=== PATIENT | male | born 1970 | race Caucasian/White ===

== ENCOUNTER 2017-08-18 13:41 | Emergency (ER) | payer OTHER ==
--- NOTE | 2017-08-18 15:40 | ED Physician Documentation ---
PD HPI UPPER EXT INJURY - Stated complaint Stated Complaint: FINGER LAC - Chief complaint Chief Complaint: Laceration - History obtained from History obtained from: Patient - History of Present Illness Location: Left, Finger (thumb) Timing - onset: Today Timing - details: Abrupt onset, Still present (the wound is still bleeding if he releases direct pressure.) Improved by: Other (direct pressure) Worsened by: Moving Associated symptoms: No: Weakness, Numbness Contributing factors: No: Anticoagulated Similar symptoms before: Has not had sx before Recently seen: Not recently seen Review of Systems Skin: reports: Laceration (s). denies: Rash Neurologic: denies: Focal weakness, Numbness, Near syncope PD PAST MEDICAL HISTORY - Past Medical History Neuro: Headache/migraine - Past Surgical History Past Surgical History: Yes Ortho: Other HEENT: Other - Present Medications Home Medications: Ambulatory Orders Medication Instructions Recorded Confirmed Amoxicillin/Potassium Clav 1 each PO Q12H #14 tablet 04/20/16 [Augmentin 875-125 Tablet] - Allergies Allergies/Adverse Reactions: Allergies Allergy/AdvReac Type Severity Reaction Status Date / Time acetaminophen [From Vicodin] Allergy seizure Verified 04/20/16 17:41 hydrocodone bitartrate * Allergy seizure Verified 04/20/16 17:41 [From Vicodin] ibuprofen Allergy seizure Verified 04/20/16 17:41 ketorolac tromethamine * Allergy seizure Verified 04/20/16 17:41 [From Toradol] - Social History Does the pt smoke?: No Smoking Status: Never smoker Does the pt drink ETOH?: No Does the pt have substance abuse?: No - Immunizations Immunizations are current?: Yes PD ED PE NORMAL - Vitals Vital signs reviewed: Yes - General General: Alert and oriented X 3, Well developed/nourished - Derm Derm: Normal color, Warm and dry - Extremities Extremities: Other (left thumb with lac at tip, not involving nailbed and without deformity of the nailbed. Lac is in soft tissue and is bleeding mildly without pressure on the thumb. Normal ROM and cap refill. ) - Neuro Neuro: Alert and oriented X 3, No motor deficit, No sensory deficit Results - Vitals Vitals: Oxygen O2 Source Room air Procedures - Laceration (location) left thumb tip Length in cm: 1 Wound type: Linear Neurovascular status: Sensory intact, Motor intact Tendon involvement: Tendon intact Anesthesia: Lidocaine 1% Wound Preparation: Wound explored, Wound edges modified. No: FB identified Skin layer closure: Nylon, Interrupted, Size #-0 - enter number (4) Other: Patient tolerated well, No complications, Neurovascular intact, Dressing applied, Tetanus UTD PD MEDICAL DECISION MAKING - ED course Complexity details: considered differential (lac just bleeding enough to warrant sutures, to control opening/bleeding as well as improved healing time. ) , d/w patient Departure - Departure Disposition: 01 Home, Self Care Clinical Impression: Finger laceration Qualifiers: Encounter type: initial encounter Finger: thumb Damage to nail status: without damage Foreign body presence: without foreign body Laterality: left Qualified Code(s): S61.012A - Laceration without foreign body of left thumb without damage to nail, initial encounter Condition: Stable Record reviewed to determine appropriate education?: Yes Instructions: ED Laceration Hand Comments: It is okay to wash and shower. Clean off the wound twice a day with soap and water, or peroxide and water. Apply some antibiotic ointment to it to keep it moist. Also to watch for signs of infection such as purulence, redness or increasing pain. Return to your primary care or the ER at the specified time for suture removal. Suture removal 7 or 8 days. Discharge Date/Time: 08/18/17 16:56
[2017-08-18] MEDS ORDERED: LIDOCAINE 1% 2 ML VIAL SUBQ STA (15:47)
[2017-08-18] MEDS ORDERED: LIDOCAINE 1% 2 ML VIAL ONE (15:57)
[2017-08-18 16:27] VITALS: BP 147/90
== END 2017-08-18 16:56 | disposition home or self-care (01) ==
LOC: ED 13:41
DX: S61.012A Laceration without foreign body of left thumb without damage to nail, initial encounter (principal); W26.9XXA Contact with unspecified sharp object(s), initial encounter; Y99.0 Civilian activity done for income or pay
CPT/HCPCS: 1040M; 12001; 99282; 99283

== ENCOUNTER 2018-05-17 07:07 | Outpatient (CLI) | payer OTHER | END 2018-05-17 07:08 | disposition critical access hospital (66) | LOC: EMS 07:07 | PROVIDERS: ATTEND Surgery | DX: R10.9 Unspecified abdominal pain (principal); R11.2 Nausea with vomiting, unspecified; R42 Dizziness and giddiness | CPT/HCPCS: A0425; A0427 ==

== ENCOUNTER 2018-05-17 07:28 | Emergency (ER) | payer OTHER ==
[2018-05-17 08:11] LABS: ALBUMIN 4.1 g/dL (3.2-5.5); ALBUMIN/GLOBULIN RATIO 1.2 (1.0-2.2); CALCIUM 9.1 mg/dL (8.5-10.3); TOTAL PROTEIN 7.4 g/dL (6.7-8.2)
--- NOTE | 2018-05-17 08:12 | ED Physician Documentation ---
PD HPI ABD PAIN - Stated complaint Stated Complaint: ABD PX - Chief complaint Chief Complaint: Abd Pain - History obtained from History obtained from: Patient - History of Present Illness Timing - onset: How many days ago (3) Timing - duration: Days (3) Timing - details: Gradual onset, Still present Quality: Sharp, Pain Location: LLQ Radiation: Improved by: Laying still Worsened by: Eating, Moving, Position, Palpation Associated symptoms: Nausea, Vomiting, Loss of appetite Similar symptoms before: Diagnosis (kidney stones) Recently seen: Not recently seen - Additional information Additional information: 47-year-old male with a long history of kidney stones has developed left-sided abdominal pain and he initially thought this might be a urinary tract infection and took some Azo. He states that the pain has worsened and he tried to get up and go to work this morning vomited on the way to work and then came back home. He states that he is vomiting all the water is trying to drink he has been able to urinate this morning and the pain that he is experiencing is different from what he has had with kidney stones previously and that he has tenderness and pain worse with walking. Review of Systems Constitutional: denies: Fever, Chills Eyes: denies: Decreased vision Ears: denies: Ear pain Nose: denies: Congestion Throat: denies: Sore throat Cardiac: denies: Chest pain / pressure, Palpitations Respiratory: denies: Dyspnea, Cough GI: reports: Abdominal Pain, Nausea, Vomiting : denies: Dysuria, Frequency Skin: denies: Rash Musculoskeletal: denies: Neck pain, Back pain, Extremity pain Neurologic: denies: Generalized weakness, Focal weakness, Numbness PD PAST MEDICAL HISTORY - Past Medical History Past Medical History: Yes : Kidney stones - Past Surgical History Past Surgical History: Yes Ortho: Other HEENT: Other - Present Medications Home Medications: Ambulatory Orders Medication Instructions Recorded Confirmed Amoxicillin/Potassium Clav 1 each PO Q12H #14 tablet 04/20/16 [Augmentin 875-125 Tablet] RX: Tramadol HCl 50 - 100 mg PO Q8HR PRN #20 tablet 05/17/18 - Allergies Allergies/Adverse Reactions: Allergies Allergy/AdvReac Type Severity Reaction Status Date / Time acetaminophen [From Vicodin] Allergy seizure Verified 05/17/18 07:38 hydrocodone bitartrate * Allergy seizure Verified 05/17/18 07:38 [From Vicodin] ibuprofen Allergy seizure Verified 05/17/18 07:38 ketorolac tromethamine * Allergy seizure Verified 05/17/18 07:38 [From Toradol] - Social History Does the pt smoke?: No Smoking Status: Never smoker Does the pt drink ETOH?: No Does the pt have substance abuse?: No - Immunizations Immunizations are current?: Yes - POLST Patient has POLST: No PD ED PE NORMAL - Vitals Vital signs reviewed: Yes (hypertension) - General General: Alert and oriented X 3, Well developed/nourished, Other (lying in the position on the right side appears to be in pain ) - HEENT HEENT: Atraumatic, PERRL, EOMI - Neck Neck: Supple, no meningeal sign - Cardiac Cardiac: RRR, No murmur - Respiratory Respiratory: No respiratory distress, Clear bilaterally - Abdomen Abdomen: Soft, Other (LLQ tenderness with garding and referred tenderness) - Back Back: No CVA TTP, No spinal TTP - Derm Derm: Normal color, Warm and dry, No rash - Extremities Extremities: No deformity, No edema - Neuro Neuro: Alert and oriented X 3, 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, No motor deficit, No sensory deficit, Normal speech Eye Opening: Spontaneous Motor: Obeys Commands Verbal: Oriented GCS Score: 15 - Psych Psych: Normal mood, Normal affect Results - Vitals Vitals: Vital Signs - 24 hr 05/17/18 05/17/18 05/17/18 07:30 10:20 11:40 Temperature 36.4 C L 36.4 C L Heart Rate 71 60 57 L Respiratory 18 18 18 Rate Blood Pressure 143/77 H 101/59 L 106/68 O2 Saturation 100 96 97 Oxygen O2 Source Room air - Labs Labs: Laboratory Tests 05/17/18 05/17/18 05/17/18 07:50 07:50 10:45 WBC 14.6 H RBC 4.82 Hgb 14.2 Hct 40.6 L MCV 84.4 MCH 29.5 MCHC 34.9 RDW 14.0 Plt Count 217 MPV 7.6 Neut # (Auto) 13.5 H Lymph # (Auto) 0.6 L [place] # (Auto) 0.5 Eos # (Auto) 0.0 Baso # (Auto) 0.0 Absolute Nucleated RBC 0.01 Nucleated RBC % 0.1 Sodium 134 L Potassium 3.0 L Chloride 101 Carbon Dioxide 23 Anion Gap 10.0 BUN 13 Creatinine 1.0 Estimated GFR (MDRD) 79 L Glucose 154 H Calcium 9.1 Total Bilirubin 1.0 AST 24 ALT 30 Alkaline Phosphatase 72 Total Protein 7.4 Albumin 4.1 Globulin 3.3 Albumin/Globulin Ratio 1.2 Lipase 27 Urine Color YELLOW Urine Clarity CLEAR Urine pH 6.5 Ur Specific [place] 1.015 Urine Protein NEGATIVE Urine Glucose (UA) NEGATIVE Urine Ketones 15 H Urine Occult Blood LARGE H Urine Nitrite NEGATIVE Urine Bilirubin NEGATIVE Urine Urobilinogen 0.2 (NORMAL) Ur Leukocyte Esterase NEGATIVE Urine RBC 6-10 H Urine WBC 4-5 Ur Squamous Epith Cells RARE Squamous Urine Bacteria Rare Ur Microscopic Review INDICATED Urine Culture Comments NOT INDICATED - Rads (name of study) CT abd/pel without Radiology: Prelim report reviewed (Impression: 1. Moderate left hydronephrosis and hydroureter secondary to an obstructing 6 x 5 mm calculus at the ureterovesicular junction), EMP read indepedently, See rad report Procedures - Bedside sono Bedside sono by EMP: With use of bedside ultrasound the left kidney is imaged there is some mild hydronephrosis and the kidney is sonographically nontender. The bladder is imaged and it is full but it is not over distended. PD MEDICAL DECISION MAKING - ED course Complexity details: reviewed old records, reviewed results, re-evaluated patient, considered differential, d/w patient ED course: 47 y/o male with severe pain has another kidney stone and he responds to treatment. Departure - Departure Disposition: 01 Home, Self Care Clinical Impression: Ureterolithiasis Condition: Stable Instructions: ED Stone Renal W Colic Follow-Up: MYRTLE Smith [Provider Group] Prescriptions: RX: Tramadol HCl 50 - 100 mg PO Q8HR PRN #20 tablet PRN Reason: Pain Forms: Activity restrictions Discharge Date/Time: 05/17/18 11:40
[2018-05-17 08:13] LABS: BASOPHILS % (AUTO) 0.1 %; EOSINOPHILS % (AUTO) 0.2 %; HGB - HEMOGLOBIN 14.2 g/dL (14.0-18.0); LYMPHOCYTES # (AUTO) 0.6 10^3/uL (1.5-3.5); LYMPHOCYTES % (AUTO) 4.4 %; MEAN CORPUSCULAR HEMOGLOBIN 29.5 pg (27.0-31.0); MEAN CORPUSCULAR HGB CONC 34.9 g/dL (32.0-36.0); MEAN CORPUSCULAR VOLUME 84.4 fL (80.0-94.0); MEAN PLATELET VOLUME 7.6 fL (7.4-11.4); MONOCYTES # (AUTO) 0.5 10^3/uL (0.0-1.0); MONOCYTES % (AUTO) 3.1 %; NEUTROPHILS # (AUTO) 13.5 10^3/uL (1.5-6.6); NEUTROPHILS % (AUTO) 92.2 %; PLT - PLATELET COUNT 217 10^3/uL (130-450); RED BLOOD COUNT 4.82 10^6/uL (4.70-6.10); WHITE BLOOD COUNT 14.6 x10^3/uL (4.8-10.8)
[2018-05-17] MEDS ORDERED: ONDANSETRON 4 MG/2 ML VIAL IVP STA (08:13)
[2018-05-17] MEDS ORDERED: HYDROmorphone 1 MG/ML CARPUJECT IVP STA (08:13)
[2018-05-17] MEDS ORDERED: SODIUM CHLORIDE 0.9% 1,000 ML IV ONE (08:14)
[2018-05-17] MEDS ORDERED: POTASSIUM CHLOR 10 MEQ/100 ML 10 MEQ/100 ML BAG IV ONE (08:59)
--- NOTE | 2018-05-17 09:33 | CT Report ---
Reason: LLQ pain Procedure Date: 05/17/2018 Accession Number: [id number] / [id number] Procedure: CT - Abdomen/Pelvis W/O CPT Code: FULL RESULT: EXAM: CT ABDOMEN AND PELVIS (CT KUB) EXAM DATE: 05/17/2018 08:44 AM. CLINICAL HISTORY: LLQ pain. COMPARISONS: None. TECHNIQUE: Routine axial helical CT imaging was performed through the abdomen and pelvis without IV contrast. Reconstructions: Coronal and sagittal. In accordance with CT protocol optimization, one or more of the following dose reduction techniques were utilized for this exam: automated exposure control, adjustment of mA and/or KV based on patient size, or use of iterative reconstructive technique. FINDINGS: Lung Bases: No consolidation or effusion. Small sliding hiatal hernia. Right Kidney/Ureter: No stones, hydronephrosis, or hydroureter. No perinephric fat stranding. Left Kidney/Ureter: Moderate hydronephrosis and hydroureter secondary to an obstructing 6 x 5 mm calculus at the ureterovesicular junction. Punctate densities, likely representing additional small calculi, are present in the distal ureter just proximal to the main obstructing calculus. Nonobstructing calculi in the left renal collecting system measuring up to 3 mm. There is mild to moderate perinephric and periureteric stranding. Other Solid Organs: Noncontrast images of the solid organs are grossly unremarkable. Gallbladder/Bile Ducts: Unremarkable. Peritoneal Cavity: No ascites or pneumoperitoneum. No bowel obstruction or abnormal stool burden. Normal appendix. Pelvic Organs: No bladder stones or wall thickening. Noncontrast images of the visualized pelvic organs are unremarkable. Vasculature: Unremarkable. Other: None. IMPRESSION: Moderate left hydronephrosis and hydroureter secondary to an obstructing 6 x 5 mm calculus at the ureterovesicular junction. [facility]
[2018-05-17 10:53] LABS: BILIRUBIN,URINE NEGATIVE (NEGATIVE); GLUCOSE, URINE (UA) NEGATIVE (NEGATIVE); KETONES,URINE (UA) 15 mg/dL (NEGATIVE); LEUKOCYTE ESTERASE, URINE NEGATIVE (NEGATIVE); NITRITE,URINE NEGATIVE (NEGATIVE); OCCULT BLOOD,URINE LARGE (NEGATIVE); PH,URINE 6.5 PH (5.0-7.5); PROTEIN,URINE NEGATIVE (NEGATIVE); UROBILINOGEN,URINE 0.2 (NORMAL) E.U./dL (NORMAL)
[2018-05-17 10:58] LABS: CLARITY,URINE CLEAR (CLEAR)
[2018-05-17 11:29] LABS: BACTERIA,URINE Rare /HPF (None Seen); SQUAMOUS EPITHELIAL CELL,UR RARE Squamous (<= Few)
[2018-05-17 11:43] VITALS: BP 106/68
== END 2018-05-17 11:40 | disposition home or self-care (01) ==
LOC: EDUNIT# → ED 07:28
DX: N20.1 Calculus of ureter (principal)
CPT/HCPCS: 36415; 74176; 80053; 81001; 83690; 85025; 96361; 96365; 96375; 99283; J1170; 81003; 87086